=== PATIENT | female | born 2000 | race Caucasian/White ===

== ENCOUNTER 2022-05-08 22:36 | Emergency (ER) | payer MEDICAID ==
[~2022-05-08] VITALS: Ht 175.3 cm; Wt 123.0 kg
[2022-05-08 22:54] VITALS: BP 144/102
[2022-05-09] MEDS ORDERED: CARBAMIDE PEROXIDE 6.5% OTIC SOLN 15ML LEFT EAR ONE (00:15)
[2022-05-09] MEDS ORDERED: CARB15DR63 LEFT EAR (01:10)
[2022-05-09] MEDS ORDERED: CETI-338 PO (01:39)
== END 2022-05-09 01:40 | disposition home or self-care (01) ==
LOC: ER 22:36
DX: H61.22 Impacted cerumen, left ear (principal); F41.9 Anxiety disorder, unspecified; F32.9 Major depressive disorder, single episode, unspecified; Z90.49 Acquired absence of other specified parts of digestive tract
CPT/HCPCS: 99282

== ENCOUNTER 2022-08-10 23:16 | Emergency (ER) | payer MEDICAID ==
[~2022-08-10] VITALS: Ht 172.7 cm; Wt 130.0 kg
[~2022-08-10 23:16] MED LIST: CARB15DR63 LEFT EAR; CETI-338 PO
[2022-08-10 23:55] VITALS: BP 147/90
[2022-08-11] MEDS ORDERED: LACTULOSE 20G/30ML UDC PO ONE (01:30)
[2022-08-11] MEDS ORDERED: POLY17PO3 PO (01:31)
== END 2022-08-11 02:16 | disposition home or self-care (01) ==
LOC: ER 23:16
DX: K59.00 Constipation, unspecified (principal); Z90.49 Acquired absence of other specified parts of digestive tract
CPT/HCPCS: 99281

== ENCOUNTER 2022-08-17 00:20 | Inpatient (IN) | payer MEDICAID ==
[~2022-08-17] VITALS: Ht 172.7 cm; Wt 108.0 kg
[~2022-08-17 00:20] MED LIST changes: +POLY17PO3 PO
[2022-08-17] MEDS ORDERED: SODIUM CHLORIDE 0.9% 1,000 ML IV ONE (05:30)
[2022-08-17 05:47] LABS: BASOPHILS % 0.8 % (0.0-2.0); EOSINOPHILS % 0.4 % (0.0-5.0); HEMATOCRIT. 41.4 % (36.0-48.0); LYMPHOCYTES % 27.6 % (20.0-50.0); MEAN CORPUSCULAR HEMOGLOBIN 25.4 pg (28.0-32.0); MEAN PLATELET VOLUME 8.6 fl (7.4-10.4); MONOCYTES % 7.1 % (2.0-8.0); NEUTROPHILS % 64.1 % (40.0-76.0); PLATELET 308 x1000/uL (130-400); RED BLOOD CELL COUNT 5.52 mill/uL (4.2-5.4); RED CELL DISTRIBUTION WIDTH 15.6 % (11.6-14.6)
[2022-08-17 06:02] LABS: CHLORIDE 104 mEq/L (98-107)
[2022-08-17 06:20] LABS: HCG SCREEN NEGATIVE
[2022-08-17] MEDS ORDERED: IOHEXOL-300 100 ML BOTTLE ONE (06:44)
[2022-08-17] MEDS ORDERED: NEOMYCIN-POLYMYXIN-HYDROCORTISONE 1% OTIC SUSP 10ML LEFT EAR ONE (07:15)
[2022-08-17] MEDS ORDERED: LEVOFLOXACIN 500MG TABLET PO ONE (07:15)
[2022-08-17] MEDS ORDERED: KETOROLAC 30MG/ML VIAL IV ONE (07:15)
[2022-08-17] MEDS ORDERED: PIPERACILLIN/TAZ 3.375G PREMIX 50 ML IV ONE (07:15)
[2022-08-17] MEDS ORDERED: OFLOXACIN OTIC DROPS/10 ML BOTTLE OT SCH ×2 (08:15)
[2022-08-17] MEDS ORDERED: NEOMYCIN-POLYMYXIN-HYDROCORTISONE 1% OTIC SUSP 10ML LEFT EAR SCH (12:00)
[2022-08-17 14:30] VITALS: BP 132/64
[2022-08-17 16:00] VITALS: BP 105/71
[2022-08-17] MEDS ORDERED: POTASSIUM CHLORIDE 20MEQ TABLET SR PO NR (16:45)
[2022-08-17] MEDS ORDERED: KETOROLAC 30MG/ML VIAL IV PRN (16:45)
[2022-08-17] MEDS ORDERED: NALOXONE HCL 0.4MG/ML VIAL IV PRN (17:45)
[2022-08-17] MEDS: METHYLPREDNISOLONE SOD SUCC 40 MG/ML VIAL IV SCH ×2 (18:43→21:43)
[2022-08-17 20:00] VITALS: BP 121/72
[2022-08-17] MEDS ORDERED: LEVO750T68 MT (21:02)
[2022-08-17] MEDS ORDERED: MED4 MT (21:02)
[2022-08-17] MEDS ORDERED: IBUP-2030 MT (21:02)
[2022-08-17] MEDS: HYDROCODONE/ACETAMINOPHEN 5/325MG TABLET PO PRN (21:43)
[2022-08-18] VITALS: BP 139/78
[2022-08-18 04:00] VITALS: BP 125/78
[2022-08-18] MEDS: METHYLPREDNISOLONE SOD SUCC 40 MG/ML VIAL IV SCH (05:31)
[2022-08-18 06:25] LABS: BASOPHILS % 0.1 % (0.0-2.0); HEMATOCRIT. 38.9 % (36.0-48.0); HEMOGLOBIN. 13.2 g/dL (12.0-16.0); LYMPHOCYTES % 12.6 % (20.0-50.0); MEAN CORPUSCULAR HEMOGLOBIN 25.5 pg (28.0-32.0); MEAN CORPUSCULAR VOLUME 75.1 fL (81.0-99.0); MEAN PLATELET VOLUME 8.8 fl (7.4-10.4); MONOCYTES % 1.6 % (2.0-8.0); NEUTROPHILS % 85.7 % (40.0-76.0); PLATELET 285 x1000/uL (130-400); RED BLOOD CELL COUNT 5.19 mill/uL (4.2-5.4); RED CELL DISTRIBUTION WIDTH 15.5 % (11.6-14.6)
[2022-08-18 06:38] LABS: CHLORIDE 107 mEq/L (98-107)
[2022-08-18 08:00] VITALS: BP 121/73
[2022-08-18] MEDS ORDERED: LEVOFLOXACIN 250MG TABLET PO SCH (08:30)
[2022-08-18] MEDS: HYDROCODONE/ACETAMINOPHEN 5/325MG TABLET PO PRN (10:52)
[2022-08-18 12:00] VITALS: BP 124/72
[2022-08-18 14:43] VITALS: BP 124/72
[2022-08-18 16:00] VITALS: BP 122/76
== END 2022-08-18 15:35 | disposition home or self-care (01) | DRG 115 ==
LOC: ER 00:20 → 6EST 14:09
PROVIDERS: ADMIT Internal Medicine; ATTEND Internal Medicine
DX: H60.502 Unspecified acute noninfective otitis externa, left ear (principal); E66.01 Morbid (severe) obesity due to excess calories; L03.211 Cellulitis of face; E87.6 Hypokalemia; F32.A Depression, unspecified; F41.9 Anxiety disorder, unspecified; E80.6 Other disorders of bilirubin metabolism; Z90.49 Acquired absence of other specified parts of digestive tract; Z68.36 Body mass index [BMI] 36.0-36.9, adult
CPT/HCPCS: 36415; 70491; 80048; 80053; 84145; 84703; 85025; 99285; J1885; J2543; J2920; J7030; Q9967

== ENCOUNTER 2022-09-19 18:23 | Emergency (ER) | payer MEDICAID ==
[~2022-09-19] VITALS: Ht 167.6 cm; Wt 90.0 kg
[~2022-09-19 18:23] MED LIST changes: +IBUP-2030 MT; +LEVO750T68 MT; +MED4 MT
[2022-09-19 18:36] VITALS: BP 142/103
[2022-09-19 19:19] LABS: BASOPHILS % 0.6 % (0.0-2.0); EOSINOPHILS % 0.9 % (0.0-5.0); HEMATOCRIT. 39.6 % (36.0-48.0); HEMOGLOBIN. 13.5 g/dL (12.0-16.0); LYMPHOCYTES % 28.1 % (20.0-50.0); MEAN CORPUSCULAR HEMOGLOBIN 26.2 pg (28.0-32.0); MEAN CORPUSCULAR VOLUME 76.9 fL (81.0-99.0); MEAN PLATELET VOLUME 8.7 fl (7.4-10.4); NEUTROPHILS % 61.4 % (40.0-76.0); PLATELET 285 x1000/uL (130-400); RED BLOOD CELL COUNT 5.16 mill/uL (4.2-5.4); RED CELL DISTRIBUTION WIDTH 15.7 % (11.6-14.6)
[2022-09-19 19:28] LABS: CHLORIDE 105 mEq/L (98-107)
[2022-09-19 19:29] LABS: HCG SCREEN POSITIVE
== END 2022-09-20 00:32 | disposition left against medical advice (07) ==
LOC: ER 18:23
DX: Z53.21 Procedure and treatment not carried out due to patient leaving prior to being seen by health care provider (principal)
CPT/HCPCS: 36415; 80053; 84703; 85025; 86850; 86900; 99281

== ENCOUNTER 2023-01-05 18:19 | Emergency (ER) | payer MEDICAID ==
[~2023-01-05] VITALS: Ht 172.7 cm; Wt 129.0 kg
[2023-01-05 18:42] VITALS: O2SAT 98
[2023-01-05] MEDS ORDERED: POLY10DR17 EACHEYE (19:20)
[2023-01-05 19:46] VITALS: BP 142/84; PULSE 90; RESP 20; TEMP 98.8
== END 2023-01-05 19:51 | disposition home or self-care (01) ==
LOC: ER 18:29
DX: H60.501 Unspecified acute noninfective otitis externa, right ear (principal); F41.9 Anxiety disorder, unspecified; F32.9 Major depressive disorder, single episode, unspecified; Z90.49 Acquired absence of other specified parts of digestive tract; Z79.899 Other long term (current) drug therapy
CPT/HCPCS: 99281; 99283

== ENCOUNTER 2024-12-10 16:00 | Emergency (ER) | payer MEDICAID ==
[~2024-12-10] VITALS: Ht 172.7 cm; Wt 126.8 kg
[~2024-12-10 16:00] MED LIST changes: -CETI-338 PO; +CETI-341 PO; -MED4 MT; +METH4TAB95 MT; +POLY10DR18 EACHEYE
[2024-12-10 16:11] VITALS: O2SAT 99
[2024-12-10] MEDS ORDERED: CYCL10TA21 MT (17:40)
[2024-12-10] MEDS ORDERED: IBUP-2030 MT (17:40)
[2024-12-10] MEDS: IBUPROFEN 800MG TABLET PO ONE (18:23)
[2024-12-10 18:32] VITALS: BP 152/76; PULSE 95; RESP 16; TEMP 36.8; O2SAT 99
== END 2024-12-10 18:33 | disposition home or self-care (01) ==
LOC: ER 16:00
DX: S09.90XA Unspecified injury of head, initial encounter (principal); M54.50 Low back pain, unspecified; F41.9 Anxiety disorder, unspecified; F32.A Depression, unspecified; Z79.899 Other long term (current) drug therapy; Z98.890 Other specified postprocedural states; W18.30XA Fall on same level, unspecified, initial encounter; Y93.89 Activity, other specified; Y92.89 Other specified places as the place of occurrence of the external cause; Y99.8 Other external cause status
CPT/HCPCS: 81025; 99283